=== PATIENT | female | born 1980 | race Caucasian/White ===

== ENCOUNTER 2016-06-24 18:02 | Emergency (ER) | payer MEDICAID ==
[2016-06-24 18:12] VITALS: BP 144/76
[2016-06-24] MEDS ORDERED: ORPHENADRINE CITRATE 30 MG/ML VIAL IM ONE (18:33)
[2016-06-24] MEDS ORDERED: ORPHENADRINE CITRATE 30 MG/ML VIAL ONE (18:35)
--- OUTSIDE RECORDS SUMMARY | 2016-06-24 18:37 | XMS REPORT | Continuity of Care Document ---
:1980 Author Organization [facility] [place] [address] Care Team Providers Name Role Phone David Galindo Primary Care Provider [phone] Source Comments This disclosure is being made pursuant to the [employer] program and maynot contain all information available regarding this patient.[facility] Active Allergies and Adverse Reactions Allergen Noted Date Severity Reactions Comments Lamictal 11/27/2013 High Seizures Ortho Tri-Cyclen (28) 11/27/2013 High Bleeding Toradol 11/27/2013 High Hives Tramadol 11/27/2013 High Hives Current Medications Be aware that medications may not be up to date as of this document. Alwaysverify current medications with the patient. Prescription Sig. Disp. Refills Start Date End Date Status rizatriptan (MAXALT) Take 10 mg by Active 10 MG tablet mouth as needed for Migraine. May repeat in 2 hours if needed naproxen (NAPROSYN) Take 500 mg by Active 500 MG tablet mouth 2 (two) times daily with meals. venlafaxine (EFFEXOR) Take 50 mg by Active 50 MG tablet mouth 3 (three) times daily. QUEtiapine Fumarate Take 300 mg by Active (SEROQUEL) 300 MG mouth 2 (two) tablet times daily. clonazePAM (KLONOPIN) Take 0.5 mg by Active 0.5 MG tablet mouth 2 (two) times daily as needed for Anxiety. lisinopril Take 10 mg by Active (PRINIVIL,ZESTRIL) 10 mouth daily. MG tablet cephALEXin (KEFLEX) Take 1 capsule by 21 capsule 0 11/28/2013 Active 500 MG capsule mouth 4 (four) times daily. Active Problems Not on file Social History Tobacco Use Types Packs/Day Years Used Date Current Every Day Smoker 1 Tobacco Cessation:Ready to Quit: Yes Comments: Alcohol Use Drinks/Week oz/Week Comments No Alcoholic Drinks/day: ALCOHOL USE: NON-DRINKER Last Filed Vital Signs Vital Sign Reading Time Taken Blood Pressure 128/65 11/28/2013 12:21 AM CDT Pulse 89 11/28/2013 12:21 AM CDT Temperature 37.2 C (99 F) 11/27/2013 10:07 PM CDT Respiratory Rate 12 11/28/2013 12:21 AM CDT Height 1.651 m (5' 5") 11/27/2013 10:07 PM CDT Weight 117.935 kg (260 lb) 11/27/2013 10:07 PM CDT Body Mass Index 43.27 11/27/2013 10:07 PM CDT Oxygen Saturation 97% 11/28/2013 12:21 AM CDT Plan of Care Health Maintenance Due Date Last Done Comments Retired-Pertussis Vaccine Adult 2001 Retired-Tetanus Vaccine Adult 2001 Pap Smear 01/01/2004 Retired-INFLUENZA VACCINE 12/15/2014 Results from Last 3 Months Not on file
--- NOTE | 2016-06-24 18:46 | ERNOTE ---
Back Pain ER HPI Date of Service: 06/24/16 Presenting Symptoms: injury/pain to back Time Seen by Provider: 06/24/16 18:20 Source: patient Exam Limitations: no limitations Immunizations: IMMUNIZATION HX Immunizations Up to Date Yes History of Influenza Vaccine Yes Allergies/Adverse Reactions: Allergies amitriptyline Allergy (Verified 06/24/16 18:15) carbamazepine [From Tegretol] Allergy (Verified 06/24/16 18:15) clonidine Allergy (Verified 06/24/16 18:15) ethinyl estradiol [From Ortho Tri-Cyclen (28)] Allergy (Verified 06/24/16 18:15) ketorolac tromethamine [From Toradol] Allergy (Verified 06/24/16 18:15) lamotrigine [From Lamictal] Allergy (Verified 06/24/16 18:15) lurasidone HCl [From Latuda] Allergy (Verified 06/24/16 18:15) norgestimate [From Ortho Tri-Cyclen (28)] Allergy (Verified 06/24/16 18:15) tramadol Allergy (Verified 06/24/16 18:15) Home Medications: HOME MEDICATIONS LORazepam [Ativan] 0.5 mg PO BID 06/24/16 [Last Taken Unknown] [place] Carbonate 300 mg PO DAILY 06/24/16 [Last Taken Unknown] [place] Carbonate 600 mg PO HS 06/24/16 [Last Taken Unknown] Naratriptan HCl [Amerge] 2.5 mg PO PRN 06/24/16 [Last Taken Unknown] Ondansetron [Zofran Odt] 4 mg PO Q6H PRN 06/24/16 [Last Taken Unknown] Quetiapine Fumarate [Seroquel] 50 mg PO DAILY 06/24/16 [Last Taken Unknown] Topiramate [Topamax] 175 mg PO HS 06/24/16 [Last Taken Unknown] Narrative: A 35-year-old female presenting to the emergency room with right back and shoulder pain. States that at supper yesterday she twisted in her chair and has had muscle pain since then. Date (Duration): 06/24/16 Timing: Reports: constant Quality/Severity: Reports: mild Location of pain: Reports: upper back, no radiation Body Front/Back Adult: 1 - tender to palaption Recent Injury?: Reports: no Possible Precipitating Factor: Reports: turning/bending Modifying Factors - (Improves): Reports: nothing Modifying Factors - (Worsens): Reports: movement flexion Associated Symptoms: Denies: fever/chills, sweating, constipation/incontinence, nausea/vomiting, problems urinating, numbess/weakness in legs Review of Systems - Review of Systems Constitutional: Present: no symptoms reported EYE: Present: no symptoms reported ENT: Present: no symptoms reported Respiratory: Present: no symptoms reported Cardiology: Present: no symptoms reported Gastrointestinal/Abdominal: Present: no symptoms reported Genitourinary: Present: no symptoms reported Musculoskeletal: Present: See HPI, back pain Skin: Present: no symptoms reported Neurological: Present: no symptoms reported. Absent: headache, dizziness/light- headedness, weakness, numbness, tingling Endocrine: Present: no symptoms reported Hematologic/Lymphatic: Present: no symptoms reported Psych: Present: no symptoms reported - Patient's Past Medical History Patient History - Medical: Anxiety, Bipolar, Chronic Pain, Migraines Patient History - Cardiac/Respiratory: Hypertension Patient History - Cancer: No Hx of Cancer Patient History - Surgical Procedures: Cholecystectomy, , Tubal Ligation - Social History Living Situations: home Smoking Status: Current every day smoker Patient requests Smoking Cessation Consult: No Initiate information on Smoking Cessation: No Alcohol Use: none Drug Use: none - Immunizations Immunizations Up to Date: Yes History of Influenza Vaccine: Yes Physical Exam - Physical Exam Narrative: 35 y/o female has right shoulder blade and below shoulder blade pain states it happened yesterday when she was doing twisting motion in her chair. she has moderate discomfort upon palpation. States she does have muscle spasms from time to time. Has not taken anything for pain. Pain can be reproduced with twisting and bending. General Appearance: Present: wd/wn, alert, no apparent distress Eye Exam: Normal inspection: bilateral Ears, Nose, Throat: Present: normal ENT inspection Neck: Present: normal inspection, nontender, full range of motion Respiratory: Present: no respiratory distress Cardiovascular/Chest: Present: regular rate, rhythm Gastrointestinal/Abdominal: Present: normal bowel sounds Back Exam: Present: vertebral tenderness, decreased range of motion Extremity Exam: Present: normal inspection Neurological Exam: Present: oriented, normal mood/affect Skin Exam: Present: normal color Lymphatic Exam: Present: no adenopathy ED Progress - Vital Signs Patient's Vital Signs:: I have reviewed the patient's vital signs. Vital Signs: Vital Signs 06/24/16 18:08 Temperature 36.6 C Pulse Rate 91 Respiratory 20 Rate Blood Pressure 144/76 O2 Sat by Pulse 100 Oximetry - Progress/Reassessment Chief Complaint: Back Pain Progress:: Improved Plan - Plan Plan: Patient's [employer] viewed. It is slightly suspicious for narcotic abuse, no narcotics will be given at this visit. Patient was given 30 oral hydrocodone pills less than 45 days ago. Not been ordered by her primary care provider patient also has multiple narcotics scripts the last 4 months. Scripts have been from different providers not by her primary care provider. Departure Clinical Impression: Muscle strain of right upper back Qualifiers: Encounter type: initial encounter Qualified Code(s): S29.012A - Strain of muscle and tendon of back wall of thorax, initial encounter - Departure Disposition: Home self-care Condition: Stable Instructions: Thoracic Strain, [id number] Additional Instructions: Patient may take [id number] pain medication. see Primary care physician in next 2-3 days if pain continues. Return to the emergency room if symptoms worsen. Apply ice or heat to area for comfort. may also use biofreeze.
== END 2016-06-24 19:06 | disposition home or self-care (01) ==
LOC: ER 18:02
DX: S29.012A Strain of muscle and tendon of back wall of thorax, initial encounter (principal); F31.70 Bipolar disorder, currently in remission, most recent episode unspecified; F41.9 Anxiety disorder, unspecified; Z72.0 Tobacco use